=== PATIENT | female | born 1965 | race Caucasian/White ===

== ENCOUNTER 2017-08-28 07:15 | Emergency (ER) | payer BC, OTHER ==
[2017-08-28] MEDS ORDERED: Ketorolac INJ* 60 MG/2 ML VIAL IM ONE (07:59)
--- NOTE | 2017-08-28 08:15 | RAD ---
INDICATION: Left shoulder pain since a fall 3 days earlier COMPARISON: Most recent comparison shoulder radiograph is dated December 07, 2016 TECHNIQUE: 4 views of the left shoulder were obtained. FINDINGS: The visualized bones are well-corticated and appropriately aligned. There is widening of the left acromioclavicular joint measuring 6 mm, new since the most recent shoulder radiograph. IMPRESSION: INTERVAL WIDENING OF THE LEFT ACROMIOCLAVICULAR JOINT COULD BE DUE TO TYPE I ACROMIOCLAVICULAR JOINT SEPARATION. PLEASE CORRELATE TO FOCALITY OF THE PATIENT'S PAIN. IF CLINICALLY WARRANTED, RADIOGRAPHS OF THE BILATERAL AC JOINTS WITH AND WITHOUT WEIGHTS CAN BE OBTAINED TO DETERMINE SYMMETRY.
[2017-08-28 09:44] VITALS: BP 171/101
--- NOTE | 2017-08-29 17:35 | ED ---
Alex Gregory Angela, scribed for Bharat Rock MD on 08/28/17 at 0752 . Upper Extremity Pain - HPI Summary HPI Summary: This pt is a 52 y/o female presenting to [facility] c/o left shoulder pain x4 days. Pt reports she fell off a chair 4 days ago and caught herself with her left arm. Since then, she notes decreased ROM of her left shoulder. Her pain is aggravated with abduction of her left arm. NKDA. PMHx: HTN, pre-diabetic. Denies smoking, tobacco, or drug use. She is currently on Glipizide and metformin for pre-diabetes. - History of Current Complaint Chief Complaint: EDExtremityUpper Stated Complaint: LEFT SHOULDER INJURY Time Seen by Provider: 08/28/17 07:24 Hx Obtained From: Patient Mechanism Of Injury: Blunt Trauma Onset/Duration: Started Days Ago, Traumatic, Still Present Timing: Lasting Days Severity Initially: Moderate Severity Currently: Moderate Pain Location: Shoulder - left Aggravating Factor(s): Abduction Alleviating Factor(s): Rest Associated Signs & Symptoms: Positive: Negative - Allergies/Home Medications Allergies/Adverse Reactions: Allergies Allergy/AdvReac Type Severity Reaction Status Date / Time MS Latex [Latex] Allergy Rash Verified 07/14/16 07:44 PMH/Surg Hx/FS Hx/Imm Hx Endocrine/Hematology History: Reports: Hx Diabetes - HX OF BORDERLINE-STATES NO PROBLEMS NOW Cardiovascular History: Reports: Hx Hypertension - ON MEDICATION FOR Respiratory History: Reports: Hx Asthma - PRN INHALER Musculoskeletal History: Reports: Hx Arthritis - HANDS Sensory History: Reports: Hx Contacts or Glasses Denies: Hx Hearing Aid Opthamlomology History: Reports: Hx Contacts or Glasses - Surgical History Surgery Procedure, Year, and Place: RIGHT KNEE ARTHROSCOPY- 5YRS [place]GO[place] [facility] [place] Hx Anesthesia Reactions: No Infectious Disease History: No Infectious Disease History: Denies: Traveled Outside the [place] in Last 30 Days - Family History Known Family History: Positive: Other - CA on both paternal and maternal side - Social History Alcohol Use: Occasionally Substance Use Type: Reports: None Smoking Status (MU): Former Smoker Amount Used/How Often: 6 CIGARETTES PER DAY X 16 YEARS Have You Smoked in the Last Year: No Review of Systems Negative: Fever, Chills ENT: Negative Cardiovascular: Negative Respiratory: Negative Gastrointestinal: Negative Musculoskeletal: Other - left shoulder pain Positive: Decreased ROM - of left shoulder All Other Systems Reviewed And Are Negative: Yes Physical Exam - Summary Physical Exam Summary: VITAL SIGNS: Reviewed. GENERAL: Patient is a well-developed and nourished female. Patient is not in any acute respiratory distress. HEAD AND FACE: No signs of trauma. No ecchymosis, hematomas or skull depressions. No sinus tenderness. EYES: PERRLA, EOMI x 2, No injected conjunctiva, no nystagmus. EARS: Hearing grossly intact. Ear canals and tympanic membranes are within normal limits. MOUTH: Oropharynx within normal limits. NECK: Supple, trachea is midline, no adenopathy, no JVD, no carotid bruit, no c- spine tenderness, neck with full ROM. CHEST: Symmetric, no tenderness at palpation LUNGS: Clear to auscultation bilaterally. No wheezing or crackles. CVS: Regular rate and rhythm, S1 and S2 present, no murmurs or gallops appreciated. ABDOMEN: Soft, non-tender. No signs of distention. No rebound no guarding, and no masses palpated. Bowel sounds are normal. EXTREMITIES: no edema, no cyanosis or clubbing. LUE: decreased ROM of the left shoulder secondary to pain. No deformity, no ecchymosis, and no hematoma. Good capillary refill. Good pulses. NEURO: Alert and oriented x 3. No acute neurological deficits. Speech is normal and follows commands. SKIN: Dry and warm Triage Information Reviewed: Yes Vital Signs On Initial Exam: Initial Vitals Temp Pulse Resp BP Pulse Ox 97.9 F 105 18 171/113 95 08/28/17 07:26 08/28/17 07:26 08/28/17 07:26 08/28/17 07:26 08/28/17 07:26 Vital Signs Reviewed: Yes Diagnostics - Vital Signs Vital Signs Temp Pulse Resp BP Pulse Ox 08/28/17 07:26 97.9 F 105 18 171/113 95 - Laboratory Lab Statement: Any lab studies that have been ordered have been reviewed, and results considered in the medical decision making process. - Radiology Left shoulder XR Xray Interpretation: Positive (See Comments) - IMPRESSION: Interval widening of the left acromioclavicular joint could be due to type 1 acromioclavicular joint separation. Please correlate to focality of the patient's pain. If clinically warranted, radiographs of the bilateral AC joints with and without weights can be obtained to determine symmetry. Dr. Rock has reviewed this radiology report. Radiology Interpretation Completed By: Radiologist Course/Dx - Course Course Of Treatment: This pt is a 52 y/o female presenting to [facility] c/o left shoulder pain x4 days. Pt reports she fell off a chair 4 days ago and caught herself with her left arm. Since then, she notes decreased ROM of her left shoulder. Her pain is aggravated with abduction of her left arm. NKDA. PMHx: HTN, pre-diabetic. Denies smoking, tobacco, or drug use. She is currently on Glipizide and metformin for pre-diabetes. XR of left shoulder shows interval widening of the left acromioclavicular joint could be due to type 1 acromioclavicular joint separation. Please correlate to focality of the patient' s pain. In the ED course the pt was given Toradol for the pain and her symptoms improved. She was placed in shoulder immobilizer and was given a referral to orthopedics. Pt will be discharged home with follow up from orthopedist. Pt is hemodynamically stable, alert and oriented x3. - Diagnoses Differential Diagnosis/HQI/PQRI: Positive: Burn, Bursitis, Contusion, Fracture ( Closed), Strain, Sprain Provider Diagnoses: Separation of left acromioclavicular joint Discharge - Discharge Plan Condition: Stable Disposition: HOME Prescriptions: Tramadol HCl [Ultram] 50 mg PO Q6H PRN #15 tab MDD 4 PRN Reason: Pain Patient Education Materials: Acromioclavicular Separation (ED) Referrals: Giuliana Russ MD [Primary Care Provider] - Dick Heck MD [Medical Doctor] - 3 Days Additional Instructions: Please follow up with Dr. Heck, orthopedist. RETURN TO THE ED FOR ANY WORSENING SYMPTOMS. The documentation as recorded by the Alex wagner Angela accurately reflects the service I personally performed and the decisions made by Pranav godoy Walter, MD.
== END 2017-08-28 09:41 | disposition home or self-care (01) ==
LOC: ED 07:15
DX: S43.102A Unspecified dislocation of left acromioclavicular joint, initial encounter (principal); W07.XXXA Fall from chair, initial encounter; Y92.9 Unspecified place or not applicable; I10 Essential (primary) hypertension; R73.03 Prediabetes; Z87.891 Personal history of nicotine dependence
CPT/HCPCS: 96372; 99282; J1885

== ENCOUNTER 2018-01-22 06:39 | Day surgery (SDC) | payer BC ==
--- NOTE | 2018-01-11 06:36 | HP ---
PREOPERATIVE HISTORY AND PHYSICAL: DATE OF ADMISSION: 01/22/18 ATTENDING SURGEON: Luly Kraus MD CHIEF COMPLAINT: Right ring finger mass. HISTORY OF PRESENT ILLNESS: Arline is a 52-year-old woman, who noticed a mass on the distal aspect of her right ring finger few months ago. It has become increasingly bothersome and she would like to have it removed. X-ray shows calcified collateral ligaments, but otherwise no bony abnormality. PAST MEDICAL HISTORY: Positive for hypertension. PAST SURGICAL HISTORY: Right knee arthroscopy and a right wrist ganglion cyst excision. MEDICATIONS: 1. Losartan potassium/hydrochlorothiazide 100/12.5 mg p.o. daily. 2. Acetaminophen 500 mg p.o. p.r.n. 3. Albuterol 0.83% nebulizer 4 times daily as needed. 4. Metformin 500 mg p.o. t.i.d. 5. Glipizide ER 2.5 mg p.o. daily. ALLERGIES: To LATEX. FAMILY HISTORY: Heart disease, cancer, leukemia. SOCIAL HISTORY: She works at as an personnel placement specialist for the pharmacy. She is a former smoker, quit about 20 years ago. She denies illicit drug use. Occasionally drinks alcohol. REVIEW OF SYSTEMS: Negative for cephalic, cardiovascular, respiratory, gastrointestinal, genitourinary, or the musculoskeletal, skin, neurologic, endocrine and hematologic symptoms. Negative for of MRSA, hepatitis C, and HIV. PHYSICAL EXAMINATION HEENT: Unremarkable. She has good range of motion of her neck without significant pain. No masses are palpated. Her eye movements are concentric. LUNGS: Clear to auscultation. Good inspiratory effort. No wheezing. CARDIAC: Regular rate and rhythm without murmur. PERIPHERAL VASCULAR: She has palpable pulses and no peripheral edema. EXTREMITIES: She has on her right ring finger a cystic mass at the DIP flexion crease dorsal and extending ulnar onto the pad of the finger. It is tender to palpation. She has full extension and good flexion of the finger at the DIP joint. Skin is intact. Neurovascular function is intact. IMPRESSION: Right ring finger mass. PLAN: Plan is for removal of a right ring finger mass. Surgical procedure, risks, and benefits were explained to the patient and she agrees to proceed. I will see her back in followup approximately 10 days postop. [id number]/[facility] #: [id number] [facility]
[~2018-01-22 06:39] MED LIST: Buffered Lidocaine 0.9% SYRIN* 5 ML/SYR SYRINGE INTRADERM ONE
[2018-01-22] MEDS ORDERED: fentaNYL* 50 MCG/ML 2 ML VIAL (100 MCG VIAL) ONE (08:22)
[2018-01-22] MEDS ORDERED: Midazolam* 1 MG/ML 2 ML VIAL (2 MG) ONE (08:23)
[2018-01-22] MEDS ORDERED: Lidocaine 2% PF * 5 ML VIAL ONE (08:51)
[2018-01-22] MEDS ORDERED: Propofol* 10 MG/ML 20 ML BTL IV PUSH ONE ×2 (08:51→09:17)
[2018-01-22 09:45] VITALS: BP 138/96
[2018-01-22] MEDS ORDERED: Naloxone* 0.4 MG/ML 1 ML VIAL IV PRN (10:17)
--- NOTE | 2018-01-23 06:17 | OP ---
DATE OF OPERATION: 01/22/18 [facility] DATE OF : 61 SURGEON: Luly Kraus MD PROGRAM ATTENDANT: DAYTON Candelario ANESTHESIA: Local MAC. PRE-OP DIAGNOSIS: Right ring finger mass. POST-OP DIAGNOSIS: Right ring finger mass. OPERATIVE PROCEDURE: Removal of right ring finger mass. INDICATIONS FOR PROCEDURE: Mi is a 53-year-old woman with a painful mass on the distal aspect of her right ring finger. She presents for removal. ESTIMATED BLOOD LOSS: Zero. TOURNIQUET TIME: About 15 minutes. DESCRIPTION OF PROCEDURE: The patient was brought to the operating room, was given a sedation anesthetic and a digital block with 10 cc of 1% plain lidocaine. The skin of her left hand and forearm was prepped and draped in the usual sterile fashion. The hand and forearm were exsanguinated and the tourniquet elevated to 250 mmHg. A longitudinal incision was made centered over the mass. We dissected sharply through the subcutaneous tissue. The mass was isolated. It was a firm fibrous mass. It was removed and somewhat adherent to the middle phalanx. The digital nerve was carefully dissected away from the mass and the mass was sent for pathology. The wound was irrigated. A small portion of the middle phalanx was removed with a rongeur. The skin edges were reapproximated with 4-0 nylon suture. The wound was dressed with Xeroform, 4x4, Webril, and Coban. The patient tolerated the procedure well and was brought to the recovery room in good condition. [id number]/[facility] #: [id number] [facility]
== END 2018-01-22 10:02 | disposition home or self-care (01) ==
LOC: OREAST 06:39
PROVIDERS: ATTEND Orthopaedic Surgery
DX: R22.31 Localized swelling, mass and lump, right upper limb (principal); R73.03 Prediabetes; Z79.84 Long term (current) use of oral hypoglycemic drugs; J45.909 Unspecified asthma, uncomplicated; Z87.891 Personal history of nicotine dependence; M19.90 Unspecified osteoarthritis, unspecified site; Z68.36 Body mass index [BMI] 36.0-36.9, adult
CPT/HCPCS: 88305; J2250; J2704; J3010

== ENCOUNTER 2018-03-06 12:52 | Emergency (ER) | payer BC, OTHER ==
[2018-03-06 13:20] VITALS: BP 171/121
--- NOTE | 2018-03-06 13:34 | UC ---
FLU HPI - HPI Summary HPI Summary: This is kristy Ortiz documenting for attending Norm Carty . This patient is a 53 year old F presenting to [facility] [place] with a chief complaint of flu like sx for the last 3 days. The patient rates the pain 5/10 in severity. Patient reports headache, neck ache, back ache, fatigue, myalgia, fever, sore throat, cough, and nausea. Patient denies dysuria and diarrhea. Pt states she was at work today and they suggested she get a flu test. She attributes her neck pain to sleeping wrong and has no decreased ROM. Pt declined NSAID's. - History of Current Complaint Chief Complaint: UCGeneralIllness Stated Complaint: FEVER,BODYACHES Time Seen by Provider: 03/06/18 13:24 Hx Obtained From: Patient Onset/Duration: Lasting Days - 3, Still Present Severity Currently: Moderate Severity Initially: Moderate Pain Intensity: 5 Pain Scale Used: 0-10 Numeric Associated Signs & Symptoms: Positive: Fever, Myalgia, Cough, Sore Throat, Headache. Negative: Diarrhea - Allergy/Home Medications Allergies/Adverse Reactions: Allergies Allergy/AdvReac Type Severity Reaction Status Date / Time latex Allergy Rash And Verified 03/06/18 13:20 Itching PMH/Surg Hx/FS Hx/Imm Hx Endocrine History: Diabetes Cardiovascular History: Hypertension Respiratory History: Asthma - Surgical History Surgical History: None Surgery Procedure, Year, and Place: 2016 RT [facility]. 2. 010 RT [facility] finger surgery - Family History Known Family History: Positive: Diabetes, Other - CA on both paternal and maternal side - Social History Occupation: Employed Full-time Alcohol Use: Occasionally Alcohol Amount: 1-2 DRINKS EVERY FEW WEEKS Substance Use Type: None Smoking Status (MU): Former Smoker Type: Cigarettes Amount Used/How Often: 6 CIGARETTES PER DAY X 16 YEARS Have You Smoked in the Last Year: No When Did the Patient Quit Smoking/Using Tobacco: 1996 Review of Systems Constitutional: Fever, Fatigue ENT: Sore Throat Respiratory: Cough Gastrointestinal: Nausea Musculoskeletal: Myalgia, Other: - neck and back pain Neurological: Headache All Other Systems Reviewed And Are Negative: Yes Physical Exam - Summary Physical Exam Summary: General: mildly ill-appearing, no pain distress Skin: warm, color reflects adequate perfusion, dry Head: normal Eyes: EOMI, JUAN ENT: normal Neck: supple, nontender, full ROM Respiratory: CTA, breath sounds present Cardiovascular: tachycardia but regular Abdomen: soft, nontender Bowel: present Musculoskeletal: normal, strength/ROM intact Neurological: sensory/motor intact, A&O x3 Psychological: affect/mood appropriate Triage Information Reviewed: Yes Vital Signs: Initial Vital Signs Temp 98.6 F 03/06/18 13:16 Pulse 110 03/06/18 13:16 Resp 20 03/06/18 13:16 BP 171/121 03/06/18 13:16 Pulse Ox 98 03/06/18 13:16 Vital Signs Reviewed: Yes Flu Course/Dx - Course Course Of Treatment: BP noted and advised to follow up with PCP. RAPID FLU NEGATIVE. SX TREATMENT DISCUSSED WITH THE PATIENT. NECK FROM. CLINICALLY, AT THIS TIME, THE PATIENT DOES NOT HAVE MENINGITIS. F/U PMD; RECHECK SOONER IF WORSE. - Differential Dx/Diagnosis Provider Diagnoses: FLU LIKE ILLNESS. HTN Discharge - Sign-Out/Discharge Documenting (check all that apply): Patient Departure - Discharge Plan Condition: Stable Disposition: HOME Patient Education Materials: Fever in Adults (ED) Referrals: Giuliana Russ MD [Primary Care Provider] - Additional Instructions: FOLLOW UP WITH YOUR DOCTOR IF NOT IMPROVED. GET RECHECKED FOR ANY WORSENING OF YOUR CONDITION OR QUESTIONS OR CONCERNS. Your blood pressure was elevated during todays visit; please follow up with your primary care provider within a week for further evaluation. - Billing Disposition and Condition Condition: STABLE Disposition: Home Attestation Statement Scribe Attestation: This is kristy Ortiz documenting for attending Norm Carty . User Type: Provider with Scribe Provider Attestation: The documentation recorded by the scribe accurately reflects the service I personally performed and the decisions made by me.
== END 2018-03-06 14:10 | disposition home or self-care (01) ==
LOC: UCEAST 12:52
DX: J11.1 Influenza due to unidentified influenza virus with other respiratory manifestations (principal); I10 Essential (primary) hypertension; Z91.040 Latex allergy status; Z83.3 Family history of diabetes mellitus; Z80.9 Family history of malignant neoplasm, unspecified; Z87.891 Personal history of nicotine dependence
CPT/HCPCS: 99211; G0463

== ENCOUNTER 2018-08-27 08:22 | Observation (INO) | payer BC ==
[2018-08-27] MEDS ORDERED: NS 0.9% 1000 ML** 1,000 ML IV ONE (08:50)
[2018-08-27] MEDS ORDERED: Dexamethasone IV* 4 MG/ML 1 ML (4 MG) IV SLOW PU ONE (08:50)
[2018-08-27] MEDS ORDERED: Levofloxacin 500 MG IVPREMIX(* 500 MG/100 ML BAG IVPB ONE (08:52)
--- NOTE | 2018-08-27 08:56 | ED ---
Shortness of Breath - HPI Summary HPI Summary: This patient is a 53 year old female presenting to the emergency room for SOB that was worse this morning. The patient works on a floor above the ED and when she arrived to work today her supervisor nutritional yeast suggested she been seen due to her persistent cough and SOB. The patient has been seen for these sx and is on the last day of her Z-Sami. She also has albuterol but did not receive a CXR, steroids, or a nebulizer. She did receive her flu shot this year. Hx of asthma and former smoker. - History of Current Complaint Chief Complaint: EDShortnessOfBreath Time Seen by Provider: 08/27/18 08:40 Hx Obtained From: Patient Onset/Duration: Still Present, Worse Since Timing: Constant Current Severity: Moderate Dyspnea At: Rest Associated Signs & Symptoms: Cough (Nonproductive) - Allergy/Home Medications Allergies/Adverse Reactions: Allergies Allergy/AdvReac Type Severity Reaction Status Date / Time latex Allergy Rash And Verified 08/27/18 09:30 Itching Home Medications: Home Medications Atorvastatin* [Lipitor 20 MG*] 20 mg PO DAILY 08/27/18 [History Confirmed ] Proair Respiclick 1 - 2 puff INH Q4H PRN 08/27/18 [History Confirmed 08/27/18] cefUROXime axetil [Cefuroxime] 250 mg PO BID 08/27/18 [History Confirmed ] metFORMIN* [Glucophage 500 MG TAB *] 500 mg PO QID 08/27/18 [History Confirmed 08/27/18] PMH/Surg Hx/FS Hx/Imm Hx Endocrine/Hematology History: Reports: Hx Diabetes - PRE DIABETIC ON MEDS, ON MEDS DAILY Cardiovascular History: Reports: Hx Hypertension - ON DAILY MEDS Denies: Hx Pacemaker/ICD Respiratory History: Reports: Hx Asthma - PRN INHALER, NO SYMTONS IN SINCE 2014 History: Denies: Hx Renal Disease Musculoskeletal History: Reports: Hx Arthritis - HANDS Sensory History: Reports: Hx Cataracts - RT EYE, SMALL, Hx Contacts or Glasses - GLASSES Denies: Hx Hearing Aid Opthamlomology History: Reports: Hx Cataracts - RT EYE, SMALL, Hx Contacts or Glasses - GLASSES Psychiatric History: Denies: Hx Panic Disorder - Surgical History Surgery Procedure, Year, and Place: 2016 RT [facility]. 2. 010 RT [facility] finger surgery Hx Anesthesia Reactions: No Infectious Disease History: No Infectious Disease History: Denies: Traveled Outside the [place] in Last 30 Days - Family History Known Family History: Positive: Diabetes, Other - CA on both paternal and maternal side - Social History Alcohol Use: Occasionally Alcohol Amount: 1-2 DRINKS EVERY FEW WEEKS Substance Use Type: Reports: None Smoking Status (MU): Former Smoker Type: Cigarettes Amount Used/How Often: 6 CIGARETTES PER DAY X 16 YEARS Have You Smoked in the Last Year: No Review of Systems Negative: Fever Positive: Shortness Of Breath, Cough All Other Systems Reviewed And Are Negative: Yes Physical Exam - Summary Physical Exam Summary: GENERAL: Patient is a well-developed and nourished F who is lying comfortable in the stretcher. Patient appears uncomfortable secondary to difficulty breathing HEAD AND FACE: Normocephalic EYES: PERRLA, EOMI x 2. EARS: Hearing grossly intact. MOUTH: Oropharynx within normal limits. NECK: Supple, trachea is midline, no adenopathy, no JVD, no carotid bruit. CHEST: Symmetric, no tenderness at palpation LUNGS: there is diffuse expiratory wheeze with rhonchi. CVS: Regular rate and rhythm, S1 and S2 present, no murmurs or gallops appreciated. ABDOMEN: Soft, non-tender. Bowel sounds are normal. No abdominal abnormal pulsations. EXTREMITIES: Full ROM in all major joints, no edema, no cyanosis or clubbing. NEURO: Alert and oriented x 3. No acute neurological deficits. Speech is normal and follows commands. SKIN: Dry and warm Triage Information Reviewed: Yes Vital Signs On Initial Exam: Initial Vitals Temp Pulse Resp BP Pulse Ox 96.5 F 96 22 141/106 93 08/27/18 08:31 08/27/18 08:31 08/27/18 08:31 08/27/18 08:31 08/27/18 08:31 Vital Signs Reviewed: Yes Diagnostics - Vital Signs Vital Signs Temp Pulse Resp BP Pulse Ox 08/27/18 08:31 96.5 F 96 22 141/106 93 - Laboratory Result Diagrams: 08/27/18 09:05 08/27/18 09:05 Lab Statement: Any lab studies that have been ordered have been reviewed, and results considered in the medical decision making process. - Radiology CXR Radiology Interpretation Completed By: Radiologist Summary of Radiographic Findings: no active cardiopulmonary disease. ED physician has reviewed this report. - EKG 0854 Cardiac Rate: NL EKG Rhythm: Sinus Rhythm - at 98 BPM Summary of EKG Findings: nml axis Re-Evaluation - Re-Evaluation First Eval Re-Evaluation Time: 09:13 Change: Improved Comment: Pt improved with neb. Second Eval Re-Evaluation Time: 09:58 Comment: The patient states she is feeling better but she is still mildly SOB. Another breathing treatment will be ordered. Course/Dx - Course Assessment/Plan: This patient is a 53 year old female presenting to the emergency room for SOB that was worse this morning. The patient works on a floor above the ED and when she arrived to work today her supervisor nutritional yeast suggested she been seen due to her persistent cough and SOB. The patient has been seen for these sx and is on the last day of her Z-Sami. She also has albuterol but did not receive a CXR, steroids, or a nebulizer. She did receive her flu shot this year. Hx of asthma and former smoker. CXR reveals, per radiology, no active cardiopulmonary disease. The patient was given breathing treatments, levaquin, and IV fluids. She did have some improvement with these tx. Bloodwork obtained. The patient is 89% on room air and tachycardic. I will contact the hospitalist. I discussed results with patient. The patient agrees with this plan. - Diagnoses Provider Diagnoses: Asthma exacerbation - Physician Notifications Discussed Care of Patient With: Isis Gomez Time Discussed With Above Provider: 12:13 Instructed by Provider To: Admit As Inpatient Discharge - Sign-Out/Discharge Documenting (check all that apply): Patient Departure - admitted - Discharge Plan Condition: Fair Disposition: ADMITTED TO [facility] - Billing Disposition and Condition Condition: FAIR Disposition: Admitted to [facility] - Attestation Statements Document Initiated by Scribe: Yes Documenting Scribe: Berto Ortiz Provider For Whom Alexander is Documenting (Include Credential): Afia Conway MD Scribe Attestation: Berto Gregory scribed for Afia Conway MD on 08/28/18 at 1031. Scribe Documentation Reviewed: Yes Provider Attestation: The documentation as recorded by the Berto wagner accurately reflects the service I personally performed and the decisions made by me, Afia Conway MD Status of Scribe Document: Viewed
--- OUTSIDE RECORDS SUMMARY | 2018-08-27 08:56 | XMS REPORT | Continuity of Care Document ---
:1965 External Reference #:[id number] Author Name Jones Waldron MD Address Liza Rodriguez & [place] [address] Care Team Providers Name Role Phone Giuliana Russ M.D. Primary Care Physician Unavailable Payers Type Date Identification Numbers Payment Provider Subscriber Effective: Policy Number: [facility] Rowena Giron 2018 [id number] [facility] PayID: [id number] [address] [address] [place] [address] Advance Directives Description No Information Available Problems Date Description Provider Status Onset: 07/15/2018 Essential hypertension Jones Waldron MD Active Onset: 08/15/2018 Dysphagia Jones Waldron MD Active Onset: 08/15/2018 Hypertrophy of tonsils Jones Waldron MD Active Family History Date Family Member(s) Problem(s) Comments General Allergies General Asthma General Cancer General Diabetes General Heart Attack General Heart Disease Social History Type Date Description Comments Sex Unknown Occupation [employer] Tobacco Use Start: Unknown End: Former Cigarette Smoker x 20 yrs, quit age 33 Unknown 1-5 Cigarettes Daily Tobacco Use Start: Unknown Never Smoked Cigars Tobacco Use Start: Unknown Never Smoked A Pipe Smokeless Tobacco Never Used Smokeless Tobacco ETOH Use Currently occasionally consumes alcohol Allergies, Adverse Reactions, Alerts Description No Known Drug Allergies Medications Medication Date Status Form Strength Qnty SIG Indications Ordering Provider Losartan Active Tablets 50mg 1 by mouth Russ, Shern Potassium 00 every day M.D. Metformin HCL Active Tablets 1000mg 1 by mouth Russ, Shern 00 twice a M.D. day Ibuprofen 200 Active Tablets 200mg as needed Unknown 00 Immunizations Description No Information Available Vital Signs Date Vital Result Comment 08/15/2018 8:54am Weight 210.00 lb Weight 95.256 kg Height 63 inches 5'3" Height in cm's 160.0 cm BMI (Body Mass Index) 37.2 kg/m2 07/15/2018 9:11am Weight 210.00 lb Weight 95.256 kg Height 63 inches 5'3" Height in cm's 160.0 cm BMI (Body Mass Index) 37.2 kg/m2 Results Test Date Facility Test Result H/L Range Note Laboratory test 07/15/2018 [facility] SEE RESULT 1 finding c/o Department of [place] [address] [phone] 1 SEE RESULT BELOW Name: KEVENMI Antwon : [address]: Loyd Waldron MD Acct: [id number] Unit: [id number] AGE: 53 Location: [facility] Re07/15/18 SEX: F Status: REG REF SPEC: [id number] ANGELA: 07/15/[address]: Loyd Waldron MD REQ: [id number] RECD: 07/15/183570 STATUS: SOUT _ ORDERED: LEVEL 4 COMMENTS: [id number] FINAL DIAGNOSIS Tonsil, left, biopsy: -- Benign nodular squamous mucosa and lymphoid tissue. -- No evidence of neoplasia. CLINICAL HISTORY No history given GROSS DESCRIPTION The specimen is received in formalin labeled, Left Tonsil Mass, and consists of a 0.8 x 0.5 x 0.3 cm benitez-pink irregular soft tissue fragment which is inked, trisected and submitted entirely in one cassette. Signed by and Reported on: Lindsay Gaspar MD 07/16/18 1058 END OF REPORT DEPARTMENT OF PATHOLOGY, [address] [place] [address] Enrrique Sutton M.D. 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 However I think just to be thorough I am going to order a barium esophagram.
[2018-08-27] MEDS ORDERED: Albuterol/Ipratropium NEB.SOL* Albuterol 2.5 MG/Ipratropium 0.5 MG 3 ML INH ONE ×2 (08:59→10:08)
[2018-08-27 09:19] LABS: ABS Basophils 0.1 10^3/ul (0-0.2); ABS Eosinophils 0.4 10^3/ul (0-0.6); ABS Lymphocytes 1.8 10^3/ul (1.0-4.8); ABS Monocytes 0.8 10^3/ul (0-0.8); ABS Neutrophils 4.1 10^3/ul (1.5-7.7); ABS Nucleated RBC 0 10^3/ul; Hematocrit 42 % (35-47); Hemoglobin 14.2 g/dl (12.0-16.0); Lymphocyte % 25.6 %; Mean Corpuscular HGB Conc 34 g/dl (31-36); Mean Corpuscular Hemoglobin 30 pg (27-31); Mean Corpuscular Volume 87 fL (80-97); Mean Platelet Volume 7.7 fL (7.4-10.4); Nucleated Red Blood Cells % 0; Platelet Count 290 10^3/ul (150-450); Red Blood Count 4.78 10^6/ul (4.00-5.40); Red Cell Distribution Width 13 % (10.5-15); White Blood Count 7.2 10^3/ul (3.5-10.8)
[2018-08-27 09:35] LABS: INR 0.9 (0.77-1.02)
[2018-08-27 09:37] LABS: Albumin 4.6 g/dL (3.2-5.2); Albumin/Globulin Ratio 1.6 (1-3); BUN/Creatinine Ratio 24.6 (8-20); Calcium 9.8 mg/dL (8.6-10.3); EGFR African American 114.5 (>60); EGFR Non-African American 94.6 (>60); Globulin 2.9 g/dL (2-4); Potassium 4.3 mmol/L (3.5-5.0); Total Bilirubin 0.5 mg/dL (0.2-1.0); Total Protein 7.5 g/dL (6.4-8.9)
[2018-08-27] MEDS ORDERED: guaiFENesin/CODIEN 100MG-10MG* 5 ML UDC PO ONE (09:54)
[2018-08-27] MEDS ORDERED: Albuterol/Ipratropium NEB.SOL* Albuterol 2.5 MG/Ipratropium 0.5 MG 3 ML ONE (10:06)
[2018-08-27] MEDS ORDERED: Albuterol HFA INHALER* 8 gm MDI INH PRN (12:59)
[2018-08-27] MEDS ORDERED: Albuterol 2.5 MG/3 ML NEB.SOL* (0.083%) INH PRN (13:00)
[2018-08-27] MEDS ORDERED: Albuterol 2.5 MG/3 ML NEB.SOL* (0.083%) INH SCH (13:00)
[2018-08-27] MEDS ORDERED: Acetaminophen TAB* 325 MG PO PRN (13:09)
[2018-08-27] MEDS ORDERED: Dextrose 50% Syringe 50 ML* 25 GM/50 ML SYRINGE IV PUSH PRN (13:09)
[2018-08-27] MEDS ORDERED: cefTRIAXone(*) 1 GM in NS 0.9% 50 ML* 50 ML IVPB SCH (14:00)
[2018-08-27] MEDS ORDERED: Insulin GLARGINE(*) 1 UNITS UNIT SUBCUT SCH (14:00)
[2018-08-27] MEDS: Mometasone/Formoter 100/5 MDI INH SCH ×2 (14:10→19:38)
--- NOTE | 2018-08-27 14:44 | HP ---
CC: Dr. Russ * HISTORY AND PHYSICAL: DATE OF ADMISSION: 08/27/18 TIME OF EVALUATION: 12:55 p.m. PRIMARY CARE PROVIDER: Dr. Russ. CHIEF COMPLAINT: Shortness of breath. HISTORY OF PRESENT ILLNESS: Ms. Giron is a 53-year-old lady with a past medical history of hypertension, diabetes, obesity, asthma, who presents to the emergency room with complaints of shortness of breath. She states she was in her usual state of health until 6 days ago when she started to have shortness of breath, wheezing and dry cough. She contacted her primary care provider and was prescribed azithromycin. She completed her treatment yesterday and was still having significant symptoms, now associated with productive cough with yellowish sputum. She says that she came to work today, but still had significant shortness of breath with exertion and was referred to the emergency room for further evaluation. She denies chest pain, palpitations, nausea, vomiting, diarrhea. In the emergency room, she received 2 nebulizer treatments, steroids, antibiotics, but she was still short of breath and after she ambulated to the restroom, her oxygen saturation was 88% on room air and she was tachypneic with a respiratory rate of 26, reason why the hospitalist service was consulted for admission. PAST MEDICAL HISTORY: 1. Asthma, it was diagnosed 15 years ago, but the patient does not recall having PFTs and does not know her best peak flow. She states that she will usually have just 1 exacerbation a year, usually during wintertime. 2. Hypertension. 3. Type 2 diabetes. 4. Obesity with a BMI of 37.5. 5. Hyperlipidemia. 6. The patient states she has a pharyngeal lesion that is being worked up as an outpatient by Dr. Waldron and she states that "it is not cancer." I do have pathology from June 2018 and it showed benign nodular squamous mucosa and lymphoid tissue with no evidence of neoplasia. PAST SURGICAL HISTORY: Status post right wrist ganglion cyst excision. MEDICATION LIST: 1. Albuterol HFA 2 puffs inhaled q.i.d. p.r.n. shortness of breath. 2. Atorvastatin 20 mg p.o. daily. 3. Cefuroxime 250 mg p.o. b.i.d. This was started on 08/26/18. 4. Ibuprofen 400 mg p.o. b.i.d. as needed for pain. 5. Losartan 50 mg p.o. daily. 6. Metformin 500 mg p.o. q.i.d. ALLERGIES: To LATEX. FAMILY HISTORY: Her mother had a history of non-Hodgkin's lymphoma and heart disease associated with treatment. Brother has prostate cancer, other brothers have diabetes, and a sister has a history of atrial fibrillation. SOCIAL HISTORY: The patient was a smoker, she started when she was a teenager and she quit 20 years ago. She used to smoke 2 packs a week. No history of alcohol or tobacco use. She works at [employer] and surrogate decision maker is her , Tammie Giron, phone number is [phone]. REVIEW OF SYSTEMS: A 14-point review of systems was performed and all the pertinent negative and positive findings are in the HPI. PHYSICAL EXAMINATION GENERAL: The patient is a pleasant, obese lady, sitting up in the ED stretcher , in no acute distress. VITAL SIGNS: Temperature 96.5, heart rate is 110, respiratory rate is 28, oxygen saturation 94% on 2 L nasal cannula, blood pressure is 150/92. HEENT: Pupils are equal. Moist mucous membranes. CHEST: Breath sounds present bilaterally with scattered wheeze and rhonchi. CVS: Normal S1, S2. Regular rate and rhythm. ABDOMEN: Soft, obese. Bowel sounds present. EXTREMITIES: No edema. NEURO: She is alert and oriented x3. Able to move all 4 extremities. DIAGNOSTIC STUDIES/LAB DATA: The patient had a CBC that showed WBC of 7.2, hemoglobin of 14.2, hematocrit of 42, platelets of 290 with 57% neutrophils. INR is 0.9. Chemistry showed a sodium of 136, potassium of 4.3, chloride of 99 , bicarb of 27, BUN of 16, creatinine of 0.6, glucose of 293, lactic acid of 2.2 , calcium of 9.8. LFTs are normal. Troponin was negative x2. BNP was 3. Chest x-ray showed no active cardiopulmonary disease and I reviewed the film and agree with it. EKG done on 08/27/18 at 8:54 a.m., shows sinus rhythm at 98 beats per minute with no ST-T changes, no acute ischemic changes. There is no prior EKG to compare. ASSESSMENT AND PLAN: Ms. Giron is a 53-year-old female with a past medical history of hypertension, diabetes, hyperlipidemia, obesity, asthma, who presents to the emergency room with complaints of progressive shortness of breath associated with productive cough, found to have asthma exacerbation secondary to bronchitis. 1. Acute hypoxemic respiratory failure. This is secondary to asthma exacerbation. 2. Asthma exacerbation secondary to bronchitis. The patient will be admitted as observation to the medical floor. We are going to start her on ceftriaxone, doxycycline, IV steroids, and we will continue bronchodilators and we will add inhaled steroids. We will check her peak flow pre and post treatment. Her x-ray did not show an infiltrate and I suspect the cause of her exacerbation at this time is bronchitis. 3. Systemic inflammatory response syndrome. The patient does meet systemic inflammatory response syndrome criteria with tachycardia and tachypnea, but I believe she is not septic. I believe the is tachycardic and tachypneic due to her asthma exacerbation. Her white cell count is normal. She has minimal lactic acid elevation and this is secondary to metformin use. 4. Mild lactic acidosis. Secondary to metformin use. This is not associated with sepsis. 5. Uncontrolled diabetes. The patient takes metformin and her initial glucose in the ED was 293. I am going to check hemoglobin A1c, but with steroid use her glucose is going to be even higher, so I am adding Lantus and she will have a lispro sliding scale. 6. Hypertension. We will continue losartan with holding parameters. 7. Hyperlipidemia. We will continue atorvastatin. 8. DVT prophylaxis: The patient has a score of 2 on the DVT Prophylaxis Risk Assessment Guide and she will be started on subcutaneous heparin. 9. Code status is full. TIME SPENT: Approximately 50 minutes was spent with the patient's interview, medical records review, physical examination to complete this admission, more than half of this time was spent [id number] with the patient and coordination of care. [id number]/[facility] #: [id number] JAIME
[2018-08-27] MEDS: Heparin VIAL(*) 5000 UNITS/ML VIAL (FIVE THOUSAND) SUBCUT SCH ×2 (14:56→21:58)
[2018-08-27] MEDS: methylPREDNISolone SOD 40 MG* 1 ML VIAL IV SCH (14:56)
[2018-08-27] MEDS: DOXYcycline IV* 100 MG in NS 0.9% 250 ML* 250 ML IVPB SCH (15:49)
[2018-08-27] MEDS: Insulin LISPRO* 1 UNITS UNIT SUBCUT SCH ×2 (17:30→21:57)
[2018-08-27] MEDS: Albuterol 2.5 MG/3 ML NEB.SOL* (0.083%) INH SCH (19:31)
[2018-08-27] MEDS ORDERED: Atorvastatin* 20 MG TAB PO SCH (21:30)
[2018-08-27] MEDS ORDERED: Losartan TAB* 25 MG PO SCH (21:30)
[2018-08-27] MEDS: guaiFENesin ER TAB 600 MG PO SCH (21:57)
[2018-08-28] MEDS: Albuterol 2.5 MG/3 ML NEB.SOL* (0.083%) INH SCH ×3 (01:37→13:01)
[2018-08-28] MEDS: DOXYcycline IV* 100 MG in NS 0.9% 250 ML* 250 ML IVPB SCH (03:56)
[2018-08-28] MEDS: methylPREDNISolone SOD 40 MG* 1 ML VIAL IV SCH ×2 (03:56→12:59)
[2018-08-28] MEDS: Heparin VIAL(*) 5000 UNITS/ML VIAL (FIVE THOUSAND) SUBCUT SCH (06:22)
[2018-08-28] MEDS: Mometasone/Formoter 100/5 MDI INH SCH (07:44)
[2018-08-28] MEDS: Insulin LISPRO* 1 UNITS UNIT SUBCUT SCH ×2 (08:47→12:58)
[2018-08-28] MEDS: guaiFENesin ER TAB 600 MG PO SCH (08:48)
[2018-08-28 14:03] VITALS: BP 154/89
[2018-08-28] MEDS ORDERED: Insulin GLARGINE(*) 1 UNITS UNIT SUBCUT SCH (17:00)
--- NOTE | 2018-08-28 20:29 | DS ---
CC: Dr. Giuliana Russ * DISCHARGE SUMMARY: DATE OF ADMISSION: 08/27/18 DATE OF DISCHARGE: 08/28/18 PRIMARY CARE PROVIDER: Dr. Giuliana Russ. DISCHARGE DIAGNOSIS: Asthma exacerbation. SECONDARY DIAGNOSES: 1. History of asthma. 2. diabetes. 3. Hyperlipidemia. 4. History of benign pharyngeal lesion. MEDICATIONS AT DISCHARGE: Include: 1. Albuterol inhaler on a p.r.n. basis. 2. Atorvastatin 20 mg daily. 3. Cefuroxime 250 mg p.o. b.i.d. as previously prescribed. 4. Ibuprofen on a p.r.n. basis 400 mg. 5. Losartan 50 mg daily. 6. Metformin 500 mg 4 times a day. 7. Albuterol nebulizer machine is going to be set up for the patient and the patient was prescribed nebulizer Respules with albuterol to be used every 6 hours p.r.n. 8. Dulera 100/50 one puff inhalation b.i.d. 9. Prednisone 50 mg daily for 5 days total, then stop. LABORATORY DATA AND STUDIES PERFORMED DURING THE HOSPITAL STAY: Unchanged from the patient's admitting labs. The patient's portable chest x-ray at admission showed "no active cardiopulmonary disease." HOSPITALIZATION COURSE: Mi Giron is a 53-year-old female with history of asthma, who was treated for upper respiratory infection symptoms with azithromycin already. Then, she was prescribed cefuroxime, but still continues to wheeze and she came into the ED for evaluation. The patient was placed on Solu-Medrol, doxycycline, and ceftriaxone. By the time of discharge, her wheezing was scant on exam and she was ready to go home. She is going to be prescribed Dulera to use as scheduled as well as nebulizer with albuterol to be used on a p.r.n. basis. At this point, although the patient still coughs up green sputum, she did not have leukocytosis or fevers and she can just continue cefuroxime as previously prescribed. The patient is also going to be prescribed prednisone to use for the next 5 days. PHYSICAL EXAMINATION: At the time of discharge, blood pressure of 146/80, heart rate of 86 and regular, respiratory rate 19, oxygen saturation 99% on room air, temperature of 97.2. General: The patient is a very pleasant 53-year -old female, who is in no acute distress. Alert, awake, and oriented x3. HEENT : Head: Atraumatic, normocephalic. Eyes: Pupils are equal, reactive to light and accommodation. Oropharynx is clear. Mucosa moist. Neck: Supple. No JVD. No bruits bilaterally. Cardiovascular: Regular rate and rhythm. No murmur. Respiratory: Scant wheezes in bilateral mid lungs. Abdomen: Soft, nontender. Bowel sounds are present in all 4 quadrants. Extremities: There is no edema. Pulses are +2 bilaterally. There is no clubbing or cyanosis. On neuro evaluation, speech is clear. Cranial nerves II through XII grossly intact. Motor strength is 5/5 bilaterally. DISPOSITION: The patient is being discharged to home with recommendation to follow up with her primary care provider in 4 to 7 days. [id number]/[facility] #: [id number] MTDD
== END 2018-08-28 14:15 | disposition home or self-care (01) ==
LOC: ED 08:22 → MED 12:56
PROVIDERS: ADMIT Internal Medicine; ATTEND Internal Medicine
DX: J45.901 Unspecified asthma with (acute) exacerbation (principal); R05 Cough; R06.02 Shortness of breath; Z87.891 Personal history of nicotine dependence; I10 Essential (primary) hypertension; E78.5 Hyperlipidemia, unspecified; E66.01 Morbid (severe) obesity due to excess calories; Z68.37 Body mass index [BMI] 37.0-37.9, adult
CPT/HCPCS: 36415; 71045; 80053; 83036; 83605; 83880; 84484; 85025; 85610; 85730; 87040; 93005; 94640; 96365; 96372; 96375; 99284; A9270-GY; G0378; J0696; J1100; J1644; J1956; J2920